=== PATIENT | female | born 1975 | race Caucasian/White ===

== ENCOUNTER → 2020-06-10 07:46 | Outpatient (BNVA) | payer OTHER, SELFPAY | DX: Z77.21 Contact with and (suspected) exposure to potentially hazardous body fluids (principal) | CPT/HCPCS: 84450; 84460; 86803; 87389; 99211 ==

== ENCOUNTER → 2020-09-02 07:30 | Outpatient (BNVA) | payer OTHER, SELFPAY | DX: Z77.21 Contact with and (suspected) exposure to potentially hazardous body fluids (principal) | CPT/HCPCS: 36415; 84450; 84460; 86803; 99211 ==